=== PATIENT | female | born 1950 | race African-American/Black ===

== ENCOUNTER 2016-07-22 08:06 | Outpatient (CLI) | payer MEDICARE, OTHER ==
[2016-07-22 09:06] LABS: #Lymphocytes 2.8 thou/uL (1.20-3.40); #Monocytes 0.4 thou/uL (0.11-0.59); #Neutrophils 2.9 thou/uL (1.40-6.50); %Basophils 0.6 % (0.0-1.0); %Eosinophils 0.6 % (0.0-10.0); %Lymphocytes 45.7 % (21.0-51.0); %Monocytes 6.2 % (0.0-10.0); %Neutrophils 46.9 % (42.0-75.0); Hemoglobin 11.8 g/dL (12.0-16.0); Mean Corpuscular HGB CONC 32.1 g/dL (32.0-36.0); Mean Corpuscular Hemoglobin 30.6 pg (27.0-31.0); Mean Corpuscular Volume 95.4 fl (81.0-99.0); Platelet Count 280 thou/uL (130-400); RBC Distribution Width 12.8 % (11.5-14.5); Red Blood Cell (RBC) Count 3.84 mill/uL (4.20-5.40); White Blood Cell (WBC) Count 6.2 thou/uL (4.8-10.8)
[2016-07-22 09:18] LABS: Hemoglobin A1c 5.7 % (4.0-6.0)
[2016-07-22 09:23] LABS: ALT (SGPT) 13 U/L (8-55); AST (SGOT) 13 U/L (5-34); Albumin 4.2 g/dL (3.4-4.8); Alkaline Phosphatase 53 U/L (40-150); Anion Gap 13 mmol/L (10-20); BUN (Urea Nitrogen) 11 mg/dL (9.8-20.1); Bilirubin, Direct 0.1 mg/dL (0.1-0.3); Bilirubin, Total 0.3 mg/dL (0.2-1.2); Calc. Creatinine Clearance 0 mL/min (70-130); Calcium 9.4 mg/dL (7.8-10.44); Carbon Dioxide 27 mmol/L (23-31); Cardiac Risk 2.3 (Less than 4.5); Chloride 104 mmol/L (98-107); Cholesterol 190 mg/dl (< 200 Desired); Estimated GFR-MDRD 87; Glucose 114 mg/dL (80-115); HDL Cholesterol 84 mg/dL (>60 Neg Risk); LDL Cholesterol, Calculated 94 mg/dL; Potassium 4.5 mmol/L (3.5-5.1); Protein, Total 7.5 g/dL (6.0-8.3); Sodium 139 mmol/L (136-145); Triglycerides 59 mg/dL (Less than 150)
[2016-07-22 09:52] LABS: Clarity Clear (Clear); Glucose, Urine (Dipstick) Negative (Negative)
[2016-07-22 09:53] LABS: Bilirubin Negative (Negative); Blood, Urine Trace (Negative); Leukocyte Negative (Negative); Nitrite Negative (Negative); Protein, Urine (Dipstick) Negative (Neg-Trace); Specific Gravity, Urine 1.015 (1.005-1.030); Urobilinogen 0.2 mg/dL (0.2-1.0); pH, Urine 6.5 (5.0-9.0)
[2016-07-22 10:00] LABS: Bacteria/HPF 1+ HPF (None Seen); Other Microscopic Description NO; RBC/HPF 0-3 HPF (0-3); Squamous Epithelial 0-3 HPF (0-3); WBC/HPF 0-3 HPF (0-3)
[2016-07-23 00:07] LABS: Hep C IgG Ab Non-Reactive (NonReactive); Hep C Index 0.09 S/CO (0-0.79)
== END 2016-07-22 08:07 | disposition home or self-care (01) ==
LOC: NAV LAB 08:06
PROVIDERS: ATTEND Family Medicine
DX: E03.8 Other specified hypothyroidism (principal); E78.2 Mixed hyperlipidemia; R73.01 Impaired fasting glucose
CPT/HCPCS: 36415; 80048; 80061; 80076; 81001; 83036; 84439; 84443; 84481; 85025; 86803

== ENCOUNTER 2016-09-08 12:50 | Outpatient (CLI) | payer MEDICARE ==
[2016-09-08 14:34] LABS: Thyroid Stimulating Hormone 4.4152 uIU/mL (0.35-4.94)
== END 2016-09-08 12:51 | disposition home or self-care (01) ==
LOC: NAV LAB 12:50
PROVIDERS: ATTEND Family Medicine
DX: E03.8 Other specified hypothyroidism (principal)
CPT/HCPCS: 36415; 84238; 84443; 84481; 84482; 86376